=== PATIENT | male | born 1935 | race Caucasian/White ===

== ENCOUNTER → 2017-04-07 | Outpatient (CLI) | payer MEDICARE, OTHER ==
[~2017-04-07] MED LIST: ADVAIR; ALL300 PO; ALLOPURINOL; ATOR10TA24 PO; ATOR10TA65 PO; FAMO40TA66 PO; FAMOTIDINE; FAMVIR; IBUP-1687 PO; LAN30PT PO; LIPITOR; LOSA-57 PO; NAPR220C12 PO; PREVACID
--- NOTE | 2017-04-07 14:25 | RADIOLOGY IMAGING REPORT ---
FACILITY: [facility] - [place] PATIENT NAME: Hank Billy : 1935 MR: [id number] V: [id number] EXAM DATE: ORDERING PHYSICIAN: HANK JAMES TECHNOLOGIST: Location: [facility] [place] Patient: Hank Billy : 1935 Visit/Account:[id number] Date of Sevice: 04/07/2017 Exam type: CHEST PA AND LAT History: Shortness of breath Comparison: None. Findings: The lungs are free of acute effusions, infiltrates or edema. There is no evidence of a pneumothorax or pneumomediastinum. There is subtle prominence of the right hilum. Cardiac silhouette is normal i n size. The trachea is in midline. There are mild spondylotic changes of the thoracic spine. IMPRESSION: 1. Subtle prominence of the right hilar region. If patient's shortness of breath continues CT may b e helpful Report Dictated By: Annika Keyes MD at 04/07/2017 12:28 PM Report E-Signed By: Annika Keyes MD at 04/07/2017 2:21 PM WSN:[email or web address]
== END ==
LOC: RAD 11:29
PROVIDERS: ATTEND Family Medicine
DX: R06.02 Shortness of breath (principal)
CPT/HCPCS: 71046

== ENCOUNTER → 2017-04-16 | Outpatient (CLI) | payer MEDICARE, OTHER ==
--- NOTE | 2017-04-16 14:43 | RT STRESS TEST REPORT ---
FACILITY: [facility] PATIENT NAME: HANK DANIELLE : [id number] MR: [id number] V: [id number] EXAM DATE: ORDERING PHYSICIAN: HANK JAMES TECHNOLOGIST: [employer] Time: 2017-04-16 14:08:34 Total Exercise Time: 00:07:16 Test Indications: Dyspnea with Exercise Medications: see nuc med list Protocol: GARO 2 Max HR: 109 BPM 77% of Pred: 140 BPM Max BP: 213/096 mmHG Max Work Load: 8.9 METS He did not have chest pain, but did experience some dyspnea and had some audible wheezing. Frequent P ACs and occasional PVCs were noted during exercise and recovery. Slight ST depression was noted in the lateral leads during recovery. IMPRESSION: Submaximal Stress. Intermediate probability of Ischemia. Decreased Exercise Tolerance. Aw ait Myoview Images. Confirmed by EL MAGALLANES ([id number]) on 04/16/2017 2:43:38 PM Referred By: Hank James Overread By: EL MAGALLANES
--- NOTE | 2017-04-16 16:29 | RADIOLOGY IMAGING REPORT ---
FACILITY: [facility] - [place] PATIENT NAME: Hank Billy : 1935 MR: [id number] V: [id number] EXAM DATE: ORDERING PHYSICIAN: HANK JAMES TECHNOLOGIST: Location: [facility] Patient: Hank Billy : 1935 Visit/Account:[id number] Date of Sevice: 04/16/2017 EXAMINATION: Single Isotope SPECT Imaging with Exercise and Gated SPECT Imaging DATE OF EXAMINATION: April 16, 2017. DATE OF INTERPRETATION: April 16, 2018 REQUESTING PHYSICIAN: HANK JAMES INDICATION: The patient is a 81-year-old male evaluated for chest pain. PROCEDURE: After informed consent the patient received an intravenous injection of 11.7 mCi of Tc-9 9m sestamibi followed at the appropriate time interval by rest imaging. The patient then exercised a ccording to the standard Keshawn protocol for 7.16 inutes achieving 8 METS. Resting heart rate was 69 bpm with a peak heart rate of 109 bpm which is 77 % of maximal predicted heart rate for age. Blood pressure at rest was 174 / 103; blood pressure during exercise was 213 / 96. There was no chest pain during exercise. Exercise was discontinued because of fatigue. Baseline EKG demonstrates sinus. T here were no EKG changes of ischemia at peak exercise. Approximately one minute and 30 seconds prior to the termination of exercise, the patient received an intravenous injection of 29.8 mCi of Tc-99m sestamibi followed by stress imaging. RAW DATA: Examination of the summed raw data revealed a good quality study. MYOCARDIAL PERFUSION: The tomographic images demonstrate moderate-sized inferior wall defect with a mild reduction in counts. Fixed with rest images. Corrects in the prone consistent with diaphragmatic attenuation. No evidence of ischemia and/or infarction.. GATED IMAGES: The gated images demonstrate normal wall motion and thickening throughout. Calculated ejection fraction is 66%. IMPRESSION: 1. EKG demonstrated no ischemia 2. Normal myocardial perfusion scan. Diaphragmatic attenuation. 3. Normal LV systolic function; LVEF 66%. 4. Based on the results of this exam, the patient appears to be at low risk for future cardiovascular events. Report Dictated By: Maciel Simons at 04/16/2017 4:17 PM Report E-Signed By: Maciel Simons at 04/16/2017 4:25 PM WSN:[id number]
== END ==
LOC: NUC 00:41
PROVIDERS: ATTEND Family Medicine
DX: R06.02 Shortness of breath (principal)
CPT/HCPCS: 78452; 93017; A9500